=== PATIENT | female | born 1945 | race Caucasian/White ===

== ENCOUNTER 2016-10-20 08:15 | Day surgery (SDC) | payer OTHER ==
[~2016-10-20] VITALS: Ht 144.8 cm; Wt 51.8 kg
[2016-10-20] VITALS (10 sets, daily range): BP systolic 98–204; BP diastolic 53–84; PULSE 71–90; RESP 16–20; TEMP 97.5–97.6; O2SAT 97–100
[~2016-10-20 08:15] MED LIST: ATOR10TA PO; CHOL50006 PO; CLOP75; GLIP10TA6 PO; HYDR-3533 PO; METF500 PO; ST JTAB PO
[2016-10-20] MEDS ORDERED: GLIP5TAB8 PO (08:42)
[2016-10-20] MEDS ORDERED: PLAV75TA29 PO (08:42)
[2016-10-20] MEDS ORDERED: ASPI81TA11 PO (08:42)
[2016-10-20] MEDS ORDERED: METF500T PO (08:42)
[2016-10-20] MEDS ORDERED: ATOR1TAB18 PO (08:42)
[2016-10-20] MEDS ORDERED: FOSA70TA PO (08:42)
[2016-10-20] MEDS ORDERED: SODIUM CHLOR 0.9% 1000 ML INJ 1,000 ML IV SCH (09:00)
[2016-10-20] MEDS ORDERED: MIDAZOLAM HCL 2 MG/2 ML VIAL ONE (10:47)
[2016-10-20] MEDS ORDERED: LIDOCAINE 1%/EPINEPHrine 1:100,000 SOLN 20 ML VIAL ONE (10:53)
[2016-10-20] MEDS ORDERED: HYDROmorphone HCL 2 MG TAB PO PRN (12:15)
--- NOTE | 2016-10-20 15:17 | RADRPT ---
EXAM DATE/TIME: 10/20/2016 11:08 [place] COMPARISON: No previous studies available for comparison. INDICATIONS : Elevated liver function. SEDATION TIME: 30 minutes BIOPSY SITE: Right MEDICATION(S): 1.) 2 mg midazolam (Versed) IV 2.) 100 mcg fentanyl (Sublimaze) IV DEVICE(S): 1.) 18 gauge BioPince needle MEDICAL HISTORY : Diabetes mellitus type 2. SURGICAL HISTORY : Hysterectomy. section. ENCOUNTER: Initial ACUITY: 1 day PAIN SCORE: 0/10 LOCATION: Right A total of one core specimen(s) were obtained and sent to the laboratory for pathologic evaluation. PROCEDURE: 1. CT guided liver biopsy. 2. Conscious sedation with continuous EKG and oximetry monitoring. 3. EKG and oximetry remained stable throughout the procedure. Prior to the procedure informed consent was obtained. Any appropriate prior imaging studies were rev iewed. The site was prepped in a sterile fashion. Full sterile technique was used, including cap, mask, lotus rile gloves and gown and a large sterile sheet. Hand hygiene and 2% chlorhexidine and/or betadine/al cohol prep was utilized per protocol for cutaneous antisepsis. The skin and subcutaneous tissues wer e infiltrated with local anesthetic solution. With CT guidance the previously identified target was localized. Biopsy was performed using the presc ribed needle as above. Adequate hemostasis was obtained with compression at the puncture site. Follow-up CT scan reveals no hemorrhage. The patient tolerated the procedure well and there were no complications. The patient was returned to the Radiology Outpatient Unit in stable condition. CONCLUSION: Uncomplicated CT guided biopsy. Clovis Lepe MD FACR on October 20, 2016 at 15:16 Board Certified Radiologist. This report was verified electronically.
== END 2016-10-20 16:00 | disposition home or self-care (01) ==
LOC: HSDC 08:15 → HRIP 08:17 → HSDC 16:00
DX: K75.89 Other specified inflammatory liver diseases (principal); R79.89 Other specified abnormal findings of blood chemistry; E11.9 Type 2 diabetes mellitus without complications
CPT/HCPCS: 47000; 77012; 88307; 88313; J2250; J3010; J7030